=== PATIENT | male | born 1965 | race Caucasian/White ===

== ENCOUNTER 2017-11-14 13:26 | Inpatient (IN) | payer MEDICARE, OTHER ==
[~2017-11-14] VITALS: Ht 175.3 cm; Wt 100.8 kg
[2017-11-14] VITALS (11 sets, daily range): BP systolic 81–104; BP diastolic 55–73
[~2017-11-14 13:26] MED LIST: FOLI1TAB16 PO; HYDR-3973 PO; MELO15TA13 PO; NORepinephrine bitartrate 8 MG in NS 250 ML BAG (32 mcg/ml) IV ONE; calcium chloride 100 MG/1 ML inj IV ONE
[2017-11-14] MEDS ORDERED: octreotide inj. 1,250 MCG in normal saline 250ml IV soln 250 ML IV ONE (15:15)
[2017-11-14] MEDS ORDERED: pantoprazole IV 80 MG in normal saline 100ml IV soln 100 ML IV ONE (15:15)
[2017-11-14] MEDS ORDERED: normal saline 1000ML IV soln IVB ONE (15:15)
[2017-11-14 15:28] LABS: BASOPHILS % (AUTO) 0.2 % (0-1); EOSINOPHILS % (AUTO) 0.2 % (0-6); HEMATOCRIT 39.1 % (42.0-52.0); HEMOGLOBIN 12.9 g/dl (14.0-17.9); LYMPHOCYTES % (AUTO) 9.4 % (21-51); MEAN CORPUSCULAR HEMOGLOBIN 36.6 PG (27.0-31.0); MEAN CORPUSCULAR HGB CONC 32.9 % (33.0-36.5); MEAN CORPUSCULAR VOLUME 111.2 FL (78-98); MEAN PLATELET VOLUME 11.3 FL (7.4-10.4); MONOCYTES # (AUTO) 1.3 X10'3 (0-0.9); MONOCYTES % (AUTO) 12.2 % (2-12); NEUTROPHILS # (AUTO) 8.5 X10'3 (1.8-7.7); PLATELET COUNT 98 X10'3 (140-440); RED BLOOD COUNT 3.52 X10'6 (4.70-6.10); RED CELL DISTRIBUTION WIDTH 20.5 % (11.5-14.5); WHITE BLOOD COUNT 10.9 X10'3 (4.5-11.0)
[2017-11-14] MEDS ORDERED: ondansetron/PF 4mg/2ml inj IV PRN (15:30)
[2017-11-14] MEDS ORDERED: potassium Cl 40MEQ/NS 500ml 500 ML IV PRN (15:30)
[2017-11-14] MEDS ORDERED: magnesium 4gm in 100ml NS 100 ML IV PRN (15:30)
[2017-11-14] MEDS ORDERED: haloperidol lactate 5mg/ml inj IM PRN (15:30)
[2017-11-14] MEDS ORDERED: magnesium Cl slow-release 64mg tablet PO PRN (15:30)
[2017-11-14] MEDS ORDERED: potassium Cl 20 mEq SR tablet PO PRN ×2 (15:30)
[2017-11-14] MEDS ORDERED: haloperidol 5mg tablet PO PRN (15:30)
[2017-11-14] MEDS ORDERED: LORazepam 2 mg/ml vial IV PRN (15:30)
[2017-11-14] MEDS ORDERED: sodium phosphate inj. 15 MMOL in dextrose 5%-water 150 ML IV PRN (15:30)
[2017-11-14] MEDS ORDERED: acetaminophen 325mg tablet PO PRN (15:30)
[2017-11-14] MEDS ORDERED: dextrose 50%-water 50ml dispensing syringe IV PRN (15:30)
[2017-11-14] MEDS ORDERED: ipratropium/albuterol 3ml nebule NEB PRN (15:30)
[2017-11-14] MEDS ORDERED: magnesium 2GM in 50ml NS 50 ML IV PRN (15:30)
[2017-11-14] MEDS ORDERED: sodium bicarbonate (8.4%) inj. 50 MEQ in dextrose 5%-water 1,000 ML IV ONE (15:30)
[2017-11-14] MEDS ORDERED: Neutra Phos packet PO PRN (15:30)
[2017-11-14] MEDS ORDERED: sodium phosphate inj. 30 MMOL in dextrose 5%-water 250 ML IV PRN (15:30)
[2017-11-14 15:31] LABS: ABG BASE EXCESS -23.9 mmol/L (-2.0-3.0); ABG HCO3 8.1 mmol/L (22.0-26.0); ABG PCO2 (T) 41.2 mmHg (35.0-48.0); ABG PO2 (T) 240.1 mmHg (83-108); ALLEN'S TEST Positive; FCOHb 1.1 % (0.5-1.5); FMetHb 0.3 % (0.3-1.12); FO2Hb 97.6 % (94-100); MINUTE VOLUME 8 L/min; PEEP 5 cm H2O; RESPIRATORY RATE 14 b/min; RESPIRATORY RATE (OBSERVED) 14 b/min; TIDAL VOLUME 500 mL; TOTAL HEMOGLOBIN 11.4 G/dl (14.0-18.0)
[2017-11-14] MEDS ORDERED: propofol 1000mg/100ml bottle 100 ML IV PRN (15:37)
[2017-11-14 15:47] LABS: ALBUMIN 1.7 G/DL (3.4-5.0); ALBUMIN/GLOBULIN RATIO 0.4 (1.1-1.5); BILIRUBIN,TOTAL 28.6 MG/DL (0.1-1.0); BLOOD UREA NITROGEN 15 MG/DL (7-18); CALCIUM 7.7 MG/DL (8.5-10.1); POTASSIUM 5.4 MMOL/L (3.5-5.1); TOTAL PROTEIN 5.7 G/DL (6.4-8.2)
[2017-11-14] MEDS ORDERED: LIDOcaine Viscous 15ml cup PO ONE (15:55)
[2017-11-14] MEDS ORDERED: fentaNYL/PF 50MCG/1 ML 2ML syringe IV PRN (15:55)
[2017-11-14] MEDS ORDERED: normal saline 1000ml 1,000 ML IV SCH (15:55)
[2017-11-14] MEDS ORDERED: MIDAZolam 1mg/ml 10ml vial IV PRN (15:55)
[2017-11-14] MEDS ORDERED: simethicone 40mg/0.6ml oral drops 30ml MC ONE (15:55)
[2017-11-14 16:00] LABS: TOTAL CELLS COUNTED 100
[2017-11-14 16:01] LABS: ANISOCYTOSIS 2+; PLATELET ESTIMATE DECREASED; ROULEAUX 1+; SMUDGE CELLS FEW; TARGET CELLS 1+
[2017-11-14 16:02] LABS: POIKILOCYTOSIS 1+; TOXIC GRANULATION 1+
[2017-11-14] MEDS ORDERED: fentaNYL/PF 50MCG/1 ML 2ML syringe ONE (16:02)
[2017-11-14] MEDS ORDERED: MIDAZolam 1mg/ml 10ml vial ONE (16:02)
[2017-11-14] MEDS ORDERED: LIDOcaine Viscous 15ml cup ONE (16:03)
[2017-11-14] MEDS: pantoprazole 40MG/NS 100ML BAG 100 ML IV SCH ×4 (16:12→20:42)
[2017-11-14 16:19] LABS: ALANINE AMINOTRANSFERASE 271 U/L (12-78); ALKALINE PHOSPHATASE 379 IU/L (46-116); ASPARTATE AMINO TRANSFERASE 518 U/L (10-37); BUN/CREATININE RATIO 6.3 (5.4-32.0); CREATININE 2.37 MG/DL (0.60-1.10); GLUCOSE 106 MG/DL (70-104); SODIUM 135 MMOL/L (135-145); TROPONIN I 0.05 NG/ML (0.0-0.05); eGFR 29 ML/MIN
[2017-11-14 16:20] LABS: ETHANOL < 0.010 GM/DL (0.0-0.010)
[2017-11-14] MEDS ORDERED: levoFLOXACIN-Levaquin 500mg/D5 100 ML IV ONE (16:20)
[2017-11-14 16:21] LABS: ANION GAP 41 (8-16); CHLORIDE 84 MMOL/L (99-107)
[2017-11-14 16:22] LABS: AMYLASE 48 U/L (25-115); LDL CHOLESTEROL 54 MG/DL (50-100); LIPASE 63 U/L (73-393)
[2017-11-14] MEDS ORDERED: desmopressin inj. 24 MCG in normal saline 100ml IV soln 94 ML IV ONE (17:40)
[2017-11-14] MEDS: vasopressin inj. 60 UNIT in normal saline 100ml IV soln 97 ML IV SCH (17:54)
[2017-11-14] MEDS ORDERED: folic acid inj. 2 MG, thiamine inj. 100 MG, MVI, adult No.4 with vit. K 10 ML in dextro... IV ONE ×4 (18:10)
[2017-11-14 18:21] LABS: BASOPHILS # (AUTO) 0.1 X10'3 (0-0.2); BASOPHILS % (AUTO) 0.9 % (0-1); EOSINOPHILS # (AUTO) 0.1 X10'3 (0-0.9); EOSINOPHILS % (AUTO) 0.9 % (0-6); HEMATOCRIT 39.1 % (42.0-52.0); HEMOGLOBIN 13.1 g/dl (14.0-17.9); LYMPHOCYTES # (AUTO) 0.9 X10'3 (1.1-4.8); LYMPHOCYTES % (AUTO) 9.2 % (21-51); MEAN CORPUSCULAR HEMOGLOBIN 34.8 PG (27.0-31.0); MEAN CORPUSCULAR HGB CONC 33.5 % (33.0-36.5); MEAN PLATELET VOLUME 11.5 FL (7.4-10.4); MONOCYTES % (AUTO) 9.8 % (2-12); NEUTROPHILS # (AUTO) 7.9 X10'3 (1.8-7.7); NEUTROPHILS % (AUTO) 79.2 % (42-75); PLATELET COUNT 75 X10'3 (140-440); RED BLOOD COUNT 3.76 X10'6 (4.70-6.10); RED CELL DISTRIBUTION WIDTH 23.2 % (11.5-14.5)
[2017-11-14 18:31] LABS: ALANINE AMINOTRANSFERASE 245 U/L (12-78); ALBUMIN 1.3 G/DL (3.4-5.0); ALBUMIN/GLOBULIN RATIO 0.4 (1.1-1.5); ALKALINE PHOSPHATASE 318 IU/L (46-116); ANION GAP 26 (8-16); ASPARTATE AMINO TRANSFERASE 609 U/L (10-37); BLOOD UREA NITROGEN 13 MG/DL (7-18); BUN/CREATININE RATIO 5.6 (5.4-32.0); CALCIUM 6.1 MG/DL (8.5-10.1); CHLORIDE 88 MMOL/L (99-107); CREATININE 2.34 MG/DL (0.60-1.10); GLUCOSE 229 MG/DL (70-104); POTASSIUM 4.2 MMOL/L (3.5-5.1); SODIUM 128 MMOL/L (135-145); TOTAL PROTEIN 4.6 G/DL (6.4-8.2); eGFR 30 ML/MIN
[2017-11-14 18:33] LABS: LARGE PLATELETS FEW; PLATELET ESTIMATE DECREASED; TOTAL CARBON DIOXIDE 14.5 MMOL/L (24-32)
[2017-11-14] MEDS: octreotide inj. 1,250 MCG in normal saline 250ml IV soln 243.75 ML IV SCH (18:35)
[2017-11-14] MEDS: sodium bicarbonate (8.4%) inj. 150 MEQ in dextrose 5%-water 1,000 ML IV SCH (18:38)
[2017-11-14 19:56] LABS: OXYGEN SATURATION (MIXED VEN) 71.8 % (60-80); PO2 MIXED VENOUS (TEMP COR) 56.8 mmHg (35-46)
[2017-11-14] MEDS ORDERED: albumin (human) 25% 100 ML IV solution IV ONE (20:00)
[2017-11-14] MEDS: nystatin 15 GM powder TP SCH (20:43)
[2017-11-14] MEDS: FENTANYL-0.9 % NACL/PF 100 ML IV PRN (21:35)
[2017-11-14] MEDS: midazolam 100mg in NS 100ml 100 ML IV PRN (21:43)
[2017-11-14 23:23] LABS: BASOPHILS % (AUTO) 0.4 % (0-1); EOSINOPHILS % (AUTO) 0.1 % (0-6); HEMATOCRIT 36.8 % (42.0-52.0); HEMOGLOBIN 12.4 g/dl (14.0-17.9); LYMPHOCYTES # (AUTO) 0.9 X10'3 (1.1-4.8); LYMPHOCYTES % (AUTO) 10.8 % (21-51); MEAN CORPUSCULAR HGB CONC 33.7 % (33.0-36.5); MEAN CORPUSCULAR VOLUME 103.9 FL (78-98); MEAN PLATELET VOLUME 10.8 FL (7.4-10.4); MONOCYTES # (AUTO) 0.6 X10'3 (0-0.9); MONOCYTES % (AUTO) 7.6 % (2-12); NEUTROPHILS # (AUTO) 6.7 X10'3 (1.8-7.7); NEUTROPHILS % (AUTO) 81.1 % (42-75); PLATELET COUNT 66 X10'3 (140-440); RED BLOOD COUNT 3.54 X10'6 (4.70-6.10); RED CELL DISTRIBUTION WIDTH 24.8 % (11.5-14.5); WHITE BLOOD COUNT 8.2 X10'3 (4.5-11.0)
[2017-11-15] VITALS (24 sets, daily range): BP systolic 55–108; BP diastolic 34–79
[2017-11-15] MEDS: NORepinephrine 8mg/ 250ml NS 250 ML IV SCH ×4 (00:58→19:39)
[2017-11-15 02:06] LABS: ABG BASE EXCESS -15.8 mmol/L (-2.0-3.0); ABG HCO3 11.5 mmol/L (22.0-26.0); ABG OXYGEN SATURATION 87.2 % (95-98); ABG PCO2 (T) 29.7 mmHg (35.0-48.0); ABG PH (T) 7.195 (7.350-7.450); ABG PO2 (T) 59.2 mmHg (83-108); ALLEN'S TEST Positive; FCOHb 1.1 % (0.5-1.5); FMetHb 0.2 % (0.3-1.12); FO2Hb 86.1 % (94-100); MINUTE VOLUME 12 L/min; PATIENT TEMPERATURE 35.4; PEEP 5 cm H2O; RESPIRATORY RATE 14 b/min; RESPIRATORY RATE (OBSERVED) 24 b/min; TIDAL VOLUME 500 mL; TOTAL HEMOGLOBIN 12.9 G/dl (14.0-18.0)
[2017-11-15] MEDS: pantoprazole 40MG/NS 100ML BAG 100 ML IV SCH ×5 (02:07→19:37)
[2017-11-15] MEDS: sodium bicarbonate (8.4%) inj. 150 MEQ in dextrose 5%-water 1,000 ML IV SCH ×4 (02:23→21:42)
[2017-11-15] MEDS ORDERED: glucagon, human recombinant 1mg kit SUBCUT PRN (02:25)
[2017-11-15] MEDS ORDERED: dextrose 50%-water 50ml dispensing syringe IV PRN ×2 (02:25)
[2017-11-15] MEDS ORDERED: insulin Lispro (HumaLOG) vial - multi-dose SQ ONE (03:10)
[2017-11-15] MEDS: insulin Lispro (HumaLOG) vial - multi-dose SQ SCH ×4 (03:32→21:22)
[2017-11-15 03:37] LABS: BASOPHILS % (AUTO) 0.6 % (0-1); EOSINOPHILS % (AUTO) 0 % (0-6); HEMATOCRIT 35.4 % (42.0-52.0); HEMOGLOBIN 11.9 g/dl (14.0-17.9); LYMPHOCYTES # (AUTO) 0.6 X10'3 (1.1-4.8); MEAN CORPUSCULAR HGB CONC 33.5 % (33.0-36.5); MEAN CORPUSCULAR VOLUME 104.3 FL (78-98); MEAN PLATELET VOLUME 10.9 FL (7.4-10.4); MONOCYTES # (AUTO) 0.3 X10'3 (0-0.9); MONOCYTES % (AUTO) 5.7 % (2-12); NEUTROPHILS # (AUTO) 4.1 X10'3 (1.8-7.7); NEUTROPHILS % (AUTO) 81.7 % (42-75); PLATELET COUNT 55 X10'3 (140-440); RED BLOOD COUNT 3.39 X10'6 (4.70-6.10); RED CELL DISTRIBUTION WIDTH 24.9 % (11.5-14.5)
[2017-11-15 04:07] LABS: HEMOGLOBIN A1C 5.1 % (4.5-6.2)
[2017-11-15 04:22] LABS: NUCLEATED RED BLOOD CELLS 1 /100WBC (0-0); TOTAL CELLS COUNTED 100
[2017-11-15 04:23] LABS: ANISOCYTOSIS 3+; BURR CELLS FEW; PLATELET ESTIMATE DECREASED; TEAR DROP CELLS FEW; TOXIC GRANULATION 1+; TOXIC VACUOLATION 1+
[2017-11-15 04:24] LABS: ALANINE AMINOTRANSFERASE 235 U/L (12-78); ALBUMIN 1.7 G/DL (3.4-5.0); ALBUMIN/GLOBULIN RATIO 0.7 (1.1-1.5); ALKALINE PHOSPHATASE 258 IU/L (46-116); ANION GAP 25 (8-16); BILIRUBIN,TOTAL 25.7 MG/DL (0.1-1.0); BLOOD UREA NITROGEN 14 MG/DL (7-18); CHLORIDE 86 MMOL/L (99-107); GLUCOSE 287 MG/DL (70-104); MAGNESIUM 1.8 MG/DL (1.5-2.4); PHOSPHORUS 6.6 MG/DL (2.3-4.5); POTASSIUM 4.7 MMOL/L (3.5-5.1); SODIUM 127 MMOL/L (135-145); TOTAL CARBON DIOXIDE 15.6 MMOL/L (24-32); TOTAL PROTEIN 4.3 G/DL (6.4-8.2)
[2017-11-15 04:44] LABS: BUN/CREATININE RATIO 5.6 (5.4-32.0); CREATININE 2.51 MG/DL (0.60-1.10); eGFR 27 ML/MIN
[2017-11-15 04:45] LABS: ASPARTATE AMINO TRANSFERASE 812 U/L (10-37)
[2017-11-15] MEDS ORDERED: calcium chloride 100 MG/1 ML inj IV ONE (05:10)
[2017-11-15 05:21] LABS: ABG BASE EXCESS -12.9 mmol/L (-2.0-3.0); ABG HCO3 11.8 mmol/L (22.0-26.0); ABG OXYGEN SATURATION 92.9 % (95-98); ABG PCO2 (T) 24.6 mmHg (35.0-48.0); ABG PH (T) 7.299 (7.350-7.450); ABG PO2 (T) 73.3 mmHg (83-108); ALLEN'S TEST Positive; FCOHb 0.9 % (0.5-1.5); FMetHb 0.2 % (0.3-1.12); FO2Hb 91.9 % (94-100); MINUTE VOLUME 18 L/min; PATIENT TEMPERATURE 36.9; PEEP 10 cm H2O; RESPIRATORY RATE 14 b/min; RESPIRATORY RATE (OBSERVED) 30 b/min; TIDAL VOLUME 500 mL; TOTAL HEMOGLOBIN 12.1 G/dl (14.0-18.0)
[2017-11-15] MEDS: midazolam 100mg in NS 100ml 100 ML IV PRN ×2 (05:41→17:48)
[2017-11-15 06:29] LABS: PROTHROMBIN TIME 111.6 SECONDS (9.0-12.0)
[2017-11-15 06:36] LABS: INR > 9.0 INR; PARTIAL THROMBOPLASTIN TIME > 153 SECONDS (22-32)
[2017-11-15 07:42] LABS: BASOPHILS # (AUTO) 0.1 X10'3 (0-0.2); BASOPHILS % (AUTO) 1.2 % (0-1); EOSINOPHILS % (AUTO) 0 % (0-6); HEMATOCRIT 32.3 % (42.0-52.0); LYMPHOCYTES # (AUTO) 0.7 X10'3 (1.1-4.8); LYMPHOCYTES % (AUTO) 15.4 % (21-51); MEAN CORPUSCULAR VOLUME 102.8 FL (78-98); MEAN PLATELET VOLUME 10.3 FL (7.4-10.4); MONOCYTES # (AUTO) 0.2 X10'3 (0-0.9); MONOCYTES % (AUTO) 4.3 % (2-12); NEUTROPHILS # (AUTO) 3.5 X10'3 (1.8-7.7); NEUTROPHILS % (AUTO) 79.1 % (42-75); RED BLOOD COUNT 3.14 X10'6 (4.70-6.10); RED CELL DISTRIBUTION WIDTH 24.9 % (11.5-14.5); WHITE BLOOD COUNT 4.4 X10'3 (4.5-11.0)
[2017-11-15 07:49] LABS: PLATELET COUNT 41 X10'3 (140-440)
[2017-11-15] MEDS ORDERED: phytonadione inj. 10 MG in normal saline 100ml IV soln 99 ML IV ONE (07:50)
[2017-11-15] MEDS: piperacillin-tazo 2.25gm/50ml 50 ML IV SCH ×3 (07:54→20:54)
[2017-11-15] MEDS: vancomycin/NS 1 GM ADD-VANTAGE 250 ML IV SCH ×2 (07:58→10:34)
[2017-11-15 08:17] LABS: ANISOCYTOSIS 3+; LARGE PLATELETS FEW; PLATELET ESTIMATE DECREASED; TARGET CELLS FEW; TEAR DROP CELLS FEW; TOTAL CELLS COUNTED 100
[2017-11-15] MEDS: nystatin 15 GM powder TP SCH ×3 (08:39→21:14)
[2017-11-15] MEDS: folic acid inj. 2 MG, thiamine inj. 100 MG, MVI, adult No.4 with vit. K 10 ML in dextro... IV SCH ×4 (15:37)
[2017-11-15] MEDS: FENTANYL-0.9 % NACL/PF 100 ML IV PRN (15:38)
[2017-11-15 16:35] LABS: BASOPHILS % (AUTO) 0.4 % (0-1); EOSINOPHILS % (AUTO) 0.6 % (0-6); HEMATOCRIT 22.9 % (42.0-52.0); HEMOGLOBIN 7.4 g/dl (14.0-17.9); LYMPHOCYTES # (AUTO) 0.6 X10'3 (1.1-4.8); LYMPHOCYTES % (AUTO) 15.1 % (21-51); MEAN CORPUSCULAR HEMOGLOBIN 35.4 PG (27.0-31.0); MEAN CORPUSCULAR HGB CONC 32.2 % (33.0-36.5); MEAN CORPUSCULAR VOLUME 109.8 FL (78-98); MEAN PLATELET VOLUME 9.9 FL (7.4-10.4); MONOCYTES # (AUTO) 0.2 X10'3 (0-0.9); MONOCYTES % (AUTO) 4.4 % (2-12); NEUTROPHILS # (AUTO) 3.1 X10'3 (1.8-7.7); NEUTROPHILS % (AUTO) 79.5 % (42-75); RED BLOOD COUNT 2.09 X10'6 (4.70-6.10); RED CELL DISTRIBUTION WIDTH 26.8 % (11.5-14.5); WHITE BLOOD COUNT 3.9 X10'3 (4.5-11.0)
[2017-11-15 16:42] LABS: PLATELET COUNT 17 X10'3 (140-440)
[2017-11-15 17:51] LABS: ALANINE AMINOTRANSFERASE 224 U/L (12-78); ALBUMIN 1.7 G/DL (3.4-5.0); ALBUMIN/GLOBULIN RATIO 0.8 (1.1-1.5); ALKALINE PHOSPHATASE 228 IU/L (46-116); ANION GAP 15 (8-16); ASPARTATE AMINO TRANSFERASE 718 U/L (10-37); BILIRUBIN,TOTAL 26.4 MG/DL (0.1-1.0); BLOOD UREA NITROGEN 14 MG/DL (7-18); BUN/CREATININE RATIO 4.5 (5.4-32.0); CALCIUM 6.4 MG/DL (8.5-10.1); CHLORIDE 88 MMOL/L (99-107); CREATININE 3.11 MG/DL (0.60-1.10); GLUCOSE 205 MG/DL (70-104); POTASSIUM 4.4 MMOL/L (3.5-5.1); SODIUM 131 MMOL/L (135-145); TOTAL CARBON DIOXIDE 27.6 MMOL/L (24-32); TOTAL PROTEIN 3.9 G/DL (6.4-8.2); eGFR 21 ML/MIN
[2017-11-15] MEDS: octreotide inj. 1,250 MCG in normal saline 250ml IV soln 243.75 ML IV SCH (19:38)
[2017-11-15] MEDS: mineral oil/petrolatum ophthal oint EACHEYE SCH (20:54)
[2017-11-15] MEDS: Insulin Detemir pen SQ SCH (21:20)
[2017-11-15 22:44] LABS: BASOPHILS % (AUTO) 0 % (0-1); EOSINOPHILS # (AUTO) 0.1 X10'3 (0-0.9); EOSINOPHILS % (AUTO) 0.9 % (0-6); HEMATOCRIT 32.6 % (42.0-52.0); HEMOGLOBIN 11.1 g/dl (14.0-17.9); LYMPHOCYTES # (AUTO) 0.8 X10'3 (1.1-4.8); LYMPHOCYTES % (AUTO) 14.4 % (21-51); MEAN CORPUSCULAR HEMOGLOBIN 35.1 PG (27.0-31.0); MEAN CORPUSCULAR HGB CONC 34.2 % (33.0-36.5); MEAN CORPUSCULAR VOLUME 102.9 FL (78-98); MEAN PLATELET VOLUME 10.2 FL (7.4-10.4); MONOCYTES # (AUTO) 0.1 X10'3 (0-0.9); MONOCYTES % (AUTO) 2.2 % (2-12); NEUTROPHILS # (AUTO) 4.7 X10'3 (1.8-7.7); NEUTROPHILS % (AUTO) 82.5 % (42-75); RED BLOOD COUNT 3.17 X10'6 (4.70-6.10); RED CELL DISTRIBUTION WIDTH 25.6 % (11.5-14.5); WHITE BLOOD COUNT 5.7 X10'3 (4.5-11.0)
[2017-11-15 22:54] LABS: PLATELET COUNT 21 X10'3 (140-440)
[2017-11-15 23:14] LABS: ALANINE AMINOTRANSFERASE 235 U/L (12-78); ALBUMIN 1.6 G/DL (3.4-5.0); ALBUMIN/GLOBULIN RATIO 0.7 (1.1-1.5); ALKALINE PHOSPHATASE 229 IU/L (46-116); ANION GAP 12 (8-16); BILIRUBIN,TOTAL 26.6 MG/DL (0.1-1.0); BLOOD UREA NITROGEN 14 MG/DL (7-18); BUN/CREATININE RATIO 4.3 (5.4-32.0); CALCIUM 6.3 MG/DL (8.5-10.1); CHLORIDE 88 MMOL/L (99-107); CREATININE 3.26 MG/DL (0.60-1.10); GLUCOSE 189 MG/DL (70-104); SODIUM 129 MMOL/L (135-145); TOTAL CARBON DIOXIDE 28.7 MMOL/L (24-32); eGFR 20 ML/MIN
[2017-11-15 23:33] LABS: ASPARTATE AMINO TRANSFERASE 715 U/L (10-37); POTASSIUM 4.2 MMOL/L (3.5-5.1)
[2017-11-16] VITALS (29 sets, daily range): BP systolic 61–100; BP diastolic 44–69
[2017-11-16] MEDS: pantoprazole 40MG/NS 100ML BAG 100 ML IV SCH ×5 (01:03→21:16)
[2017-11-16] MEDS: sodium bicarbonate (8.4%) inj. 150 MEQ in dextrose 5%-water 1,000 ML IV SCH (01:04)
[2017-11-16] MEDS: NORepinephrine 8mg/ 250ml NS 250 ML IV SCH ×5 (01:04→23:21)
[2017-11-16] MEDS: mineral oil/petrolatum ophthal oint EACHEYE SCH ×4 (02:42→20:20)
[2017-11-16] MEDS: piperacillin-tazo 2.25gm/50ml 50 ML IV SCH ×4 (02:43→20:15)
[2017-11-16 03:16] LABS: BASOPHILS % (AUTO) 0.3 % (0-1); EOSINOPHILS % (AUTO) 0.5 % (0-6); HEMATOCRIT 33.1 % (42.0-52.0); HEMOGLOBIN 11.3 g/dl (14.0-17.9); LYMPHOCYTES # (AUTO) 0.8 X10'3 (1.1-4.8); LYMPHOCYTES % (AUTO) 12.4 % (21-51); MEAN CORPUSCULAR HEMOGLOBIN 34.9 PG (27.0-31.0); MEAN CORPUSCULAR HGB CONC 34.2 % (33.0-36.5); MEAN CORPUSCULAR VOLUME 101.8 FL (78-98); MEAN PLATELET VOLUME 9.9 FL (7.4-10.4); MONOCYTES # (AUTO) 0.2 X10'3 (0-0.9); MONOCYTES % (AUTO) 3.2 % (2-12); NEUTROPHILS # (AUTO) 5.3 X10'3 (1.8-7.7); NEUTROPHILS % (AUTO) 83.6 % (42-75); RED BLOOD COUNT 3.25 X10'6 (4.70-6.10); RED CELL DISTRIBUTION WIDTH 25.6 % (11.5-14.5); WHITE BLOOD COUNT 6.4 X10'3 (4.5-11.0)
[2017-11-16 03:26] LABS: PLATELET COUNT 24 X10'3 (140-440)
[2017-11-16] MEDS: midazolam 100mg in NS 100ml 100 ML IV PRN ×2 (03:30→14:24)
[2017-11-16 03:38] LABS: PROTHROMBIN TIME 43.8 SECONDS (9.0-12.0)
[2017-11-16 03:47] LABS: ALANINE AMINOTRANSFERASE 218 U/L (12-78); ALBUMIN 1.6 G/DL (3.4-5.0); ANION GAP 10 (8-16); BLOOD UREA NITROGEN 14 MG/DL (7-18); BUN/CREATININE RATIO 4.1 (5.4-32.0); CALCIUM 6.2 MG/DL (8.5-10.1); CHLORIDE 88 MMOL/L (99-107); MAGNESIUM 1.4 MG/DL (1.5-2.4); POTASSIUM 4.4 MMOL/L (3.5-5.1); SODIUM 129 MMOL/L (135-145); TOTAL CARBON DIOXIDE 30.8 MMOL/L (24-32); eGFR 19 ML/MIN
[2017-11-16 03:55] LABS: ABG BASE EXCESS 2.9 mmol/L (-2.0-3.0); ABG HCO3 26.7 mmol/L (22.0-26.0); ABG PCO2 (T) 38.6 mmHg (35.0-48.0); ABG PH (T) 7.458 (7.350-7.450); ABG PO2 (T) 60.3 mmHg (83-108); FO2Hb 89.1 % (94-100); MINUTE VOLUME 11 L/min; PATIENT TEMPERATURE 37.3; PEEP 10 cm H2O; RESPIRATORY RATE 14 b/min; RESPIRATORY RATE (OBSERVED) 22 b/min; TIDAL VOLUME 500 mL; TOTAL HEMOGLOBIN 11.9 G/dl (14.0-18.0)
[2017-11-16 04:27] LABS: INR 4.5 INR
[2017-11-16 04:28] LABS: PARTIAL THROMBOPLASTIN TIME 90 SECONDS (22-32)
[2017-11-16 05:04] LABS: ALBUMIN/GLOBULIN RATIO 0.7 (1.1-1.5); ALKALINE PHOSPHATASE 236 IU/L (46-116)
[2017-11-16 05:05] LABS: ASPARTATE AMINO TRANSFERASE 665 U/L (10-37); GLUCOSE 137 MG/DL (70-104); PHOSPHORUS 4.6 MG/DL (2.3-4.5)
[2017-11-16 06:26] LABS: TOTAL CELLS COUNTED 100
[2017-11-16 06:27] LABS: ANISOCYTOSIS 3+; PLATELET ESTIMATE DECREASED; TARGET CELLS FEW; TEAR DROP CELLS FEW
[2017-11-16] MEDS: LACTOBACILLUS RHAMNOSUS GG 15 billion unit sprinkle caps PO SCH (07:30)
[2017-11-16] MEDS: nystatin 15 GM powder TP SCH ×3 (08:59→21:16)
[2017-11-16] MEDS: insulin Lispro (HumaLOG) vial - multi-dose SQ SCH ×3 (09:13→20:56)
[2017-11-16 10:25] LABS: ALANINE AMINOTRANSFERASE 185 U/L (12-78); ALBUMIN 1.3 G/DL (3.4-5.0); ALBUMIN/GLOBULIN RATIO 0.5 (1.1-1.5); ALKALINE PHOSPHATASE 200 IU/L (46-116); ANION GAP 20 (8-16); ASPARTATE AMINO TRANSFERASE 499 U/L (10-37); BILIRUBIN,TOTAL 21.8 MG/DL (0.1-1.0); BLOOD UREA NITROGEN 14 MG/DL (7-18); BUN/CREATININE RATIO 4.1 (5.4-32.0); CHLORIDE 82 MMOL/L (99-107); CREATININE 3.43 MG/DL (0.60-1.10); GLUCOSE 257 MG/DL (70-104); POTASSIUM 4.1 MMOL/L (3.5-5.1); SODIUM 130 MMOL/L (135-145); TOTAL CARBON DIOXIDE 28.1 MMOL/L (24-32); TOTAL PROTEIN 3.9 G/DL (6.4-8.2); eGFR 19 ML/MIN
[2017-11-16 10:28] LABS: CALCIUM 5.3 MG/DL (8.5-10.1)
[2017-11-16] MEDS: FENTANYL-0.9 % NACL/PF 100 ML IV PRN (12:58)
[2017-11-16] MEDS ORDERED: LORazepam 2 mg/ml vial IV PRN ×2 (13:35→15:30)
[2017-11-16] MEDS ORDERED: morphine 10mg/0.5ml (conc. morphine) oral syringe PO PRN (13:35)
[2017-11-16] MEDS: folic acid inj. 2 MG, thiamine inj. 100 MG, MVI, adult No.4 with vit. K 10 ML in dextro... IV SCH ×4 (14:05)
[2017-11-16] MEDS: vasopressin inj. 60 UNIT in normal saline 100ml IV soln 97 ML IV SCH (14:23)
[2017-11-16] MEDS ORDERED: LORazepam 1 MG tablet PO PRN (15:30)
[2017-11-16] MEDS ORDERED: polyethylene glycol 3350 17gm powd pack PO PRN (15:30)
[2017-11-16] MEDS ORDERED: bisacodyl 10mg suppository rectal RC PRN (15:30)
[2017-11-16 19:21] LABS: ALANINE AMINOTRANSFERASE 194 U/L (12-78); ALBUMIN 1.3 G/DL (3.4-5.0); ALBUMIN/GLOBULIN RATIO 0.5 (1.1-1.5); ALKALINE PHOSPHATASE 214 IU/L (46-116); ANION GAP 12 (8-16); ASPARTATE AMINO TRANSFERASE 486 U/L (10-37); BILIRUBIN,TOTAL 22.8 MG/DL (0.1-1.0); BLOOD UREA NITROGEN 16 MG/DL (7-18); BUN/CREATININE RATIO 4.2 (5.4-32.0); CHLORIDE 89 MMOL/L (99-107); CREATININE 3.81 MG/DL (0.60-1.10); GLUCOSE 91 MG/DL (70-104); POTASSIUM 4.6 MMOL/L (3.5-5.1); SODIUM 128 MMOL/L (135-145); TOTAL CARBON DIOXIDE 26.8 MMOL/L (24-32); TOTAL PROTEIN 3.7 G/DL (6.4-8.2); eGFR 17 ML/MIN
[2017-11-16 19:39] LABS: CALCIUM 5.7 MG/DL (8.5-10.1)
[2017-11-16] MEDS: octreotide inj. 1,250 MCG in normal saline 250ml IV soln 243.75 ML IV SCH (20:15)
[2017-11-16] MEDS: Insulin Detemir pen SQ SCH (20:58)
[2017-11-17] VITALS (17 sets, daily range): BP systolic 32–97; BP diastolic 23–62
[2017-11-17 00:34] LABS: ALANINE AMINOTRANSFERASE 193 U/L (12-78); ALBUMIN 1.3 G/DL (3.4-5.0); ALBUMIN/GLOBULIN RATIO 0.5 (1.1-1.5); ALKALINE PHOSPHATASE 211 IU/L (46-116); ANION GAP 14 (8-16); ASPARTATE AMINO TRANSFERASE 476 U/L (10-37); BILIRUBIN,TOTAL 22.5 MG/DL (0.1-1.0); BLOOD UREA NITROGEN 17 MG/DL (7-18); BUN/CREATININE RATIO 4.2 (5.4-32.0); CHLORIDE 88 MMOL/L (99-107); CREATININE 4.02 MG/DL (0.60-1.10); GLUCOSE 61 MG/DL (70-104); POTASSIUM 4.8 MMOL/L (3.5-5.1); SODIUM 128 MMOL/L (135-145); TOTAL CARBON DIOXIDE 25.8 MMOL/L (24-32); TOTAL PROTEIN 3.9 G/DL (6.4-8.2); eGFR 16 ML/MIN
[2017-11-17] MEDS: midazolam 100mg in NS 100ml 100 ML IV PRN ×2 (00:41→10:50)
[2017-11-17] MEDS: pantoprazole 40MG/NS 100ML BAG 100 ML IV SCH ×4 (02:51→13:12)
[2017-11-17] MEDS: piperacillin-tazo 2.25gm/50ml 50 ML IV SCH ×3 (02:51→14:00)
[2017-11-17] MEDS: mineral oil/petrolatum ophthal oint EACHEYE SCH ×3 (02:51→14:00)
[2017-11-17] MEDS: NORepinephrine 8mg/ 250ml NS 250 ML IV SCH ×2 (04:38→09:09)
[2017-11-17 05:20] LABS: BASOPHILS % (AUTO) 0 % (0-1); EOSINOPHILS % (AUTO) 0.1 % (0-6); HEMATOCRIT 33.5 % (42.0-52.0); HEMOGLOBIN 11.4 g/dl (14.0-17.9); LYMPHOCYTES # (AUTO) 0.6 X10'3 (1.1-4.8); MEAN CORPUSCULAR HEMOGLOBIN 35.3 PG (27.0-31.0); MEAN PLATELET VOLUME 9.7 FL (7.4-10.4); MONOCYTES # (AUTO) 0.7 X10'3 (0-0.9); MONOCYTES % (AUTO) 7.4 % (2-12); NEUTROPHILS # (AUTO) 8.7 X10'3 (1.8-7.7); NEUTROPHILS % (AUTO) 86.5 % (42-75); RED BLOOD COUNT 3.23 X10'6 (4.70-6.10); RED CELL DISTRIBUTION WIDTH 25.2 % (11.5-14.5); WHITE BLOOD COUNT 10.1 X10'3 (4.5-11.0)
[2017-11-17 05:28] LABS: PLATELET COUNT 23 X10'3 (140-440)
[2017-11-17 05:41] LABS: ALANINE AMINOTRANSFERASE 176 U/L (12-78); ALBUMIN 1.3 G/DL (3.4-5.0); ALBUMIN/GLOBULIN RATIO 0.5 (1.1-1.5); ALKALINE PHOSPHATASE 211 IU/L (46-116); ANION GAP 14 (8-16); ASPARTATE AMINO TRANSFERASE 401 U/L (10-37); BILIRUBIN,TOTAL 22.1 MG/DL (0.1-1.0); BLOOD UREA NITROGEN 18 MG/DL (7-18); BUN/CREATININE RATIO 4.2 (5.4-32.0); CHLORIDE 88 MMOL/L (99-107); CREATININE 4.32 MG/DL (0.60-1.10); GLUCOSE 91 MG/DL (70-104); MAGNESIUM 2.1 MG/DL (1.5-2.4); PHOSPHORUS 5.2 MG/DL (2.3-4.5); SODIUM 127 MMOL/L (135-145); TOTAL CARBON DIOXIDE 25.3 MMOL/L (24-32); TOTAL PROTEIN 3.8 G/DL (6.4-8.2); eGFR 15 ML/MIN
[2017-11-17 05:47] LABS: INR 3.5 INR; PROTHROMBIN TIME 34.2 SECONDS (9.0-12.0)
[2017-11-17 06:21] LABS: CALCIUM 5.8 MG/DL (8.5-10.1)
[2017-11-17 06:22] LABS: PARTIAL THROMBOPLASTIN TIME 88 SECONDS (22-32)
[2017-11-17] MEDS: LACTOBACILLUS RHAMNOSUS GG 15 billion unit sprinkle caps PO SCH (07:30)
[2017-11-17] MEDS: folic acid inj. 2 MG, thiamine inj. 100 MG, MVI, adult No.4 with vit. K 10 ML in dextro... IV SCH ×4 (08:00)
[2017-11-17] MEDS: nystatin 15 GM powder TP SCH ×2 (08:00→13:00)
[2017-11-17] MEDS: FENTANYL-0.9 % NACL/PF 100 ML IV PRN (10:50)
[2017-11-18] MEDS ORDERED: LORazepam 2 mg/ml vial IV PRN (15:30)
[2017-11-18] MEDS ORDERED: LORazepam 1 MG tablet PO PRN (15:30)
[2017-11-19] MEDS ORDERED: VANCOMYCIN LEVEL IV NR (09:30)
== END 2017-11-17 22:33 | disposition expired | DRG 871 ==
LOC: ER 13:27 → ED HOLD 15:37 → CICU 2S 17:32
PROVIDERS: ADMIT Internal Medicine Critical Care Medicine; ATTEND Internal Medicine Critical Care Medicine
PROC: 5A1945Z Respiratory Ventilation, 24-96 Consecutive Hours (ICD-10-PCS; 2017-11-14)
PROC: 30233N1 Transfusion of Nonautologous Red Blood Cells into Peripheral Vein, Percutaneous Approach (ICD-10-PCS; 2017-11-14)
PROC: 0BH17EZ Insertion of Endotracheal Airway into Trachea, Via Natural or Artificial Opening (ICD-10-PCS; 2017-11-14)
PROC: 06HM33Z Insertion of Infusion Device into Right Femoral Vein, Percutaneous Approach (ICD-10-PCS; 2017-11-14)
PROC: B54BZZA Ultrasonography of Right Lower Extremity Veins, Guidance (ICD-10-PCS; 2017-11-14)
PROC: 0DJ08ZZ Inspection of Upper Intestinal Tract, Via Natural or Artificial Opening Endoscopic (ICD-10-PCS; 2017-11-14)
PROC: 30233L1 Transfusion of Nonautologous Fresh Plasma into Peripheral Vein, Percutaneous Approach (ICD-10-PCS; principal; 2017-11-15)
PROC: 30233K1 Transfusion of Nonautologous Frozen Plasma into Peripheral Vein, Percutaneous Approach (ICD-10-PCS; 2017-11-15)
DX: A41.9 Sepsis, unspecified organism (principal); J96.01 Acute respiratory failure with hypoxia; R57.8 Other shock; K26.4 Chronic or unspecified duodenal ulcer with hemorrhage; K70.41 Alcoholic hepatic failure with coma; K29.71 Gastritis, unspecified, with bleeding; N17.9 Acute kidney failure, unspecified; E87.5 Hyperkalemia; T68.XXXA Hypothermia, initial encounter; K20.9 Esophagitis, unspecified; K70.10 Alcoholic hepatitis without ascites; K70.30 Alcoholic cirrhosis of liver without ascites; R55 Syncope and collapse; G89.29 Other chronic pain; F10.20 Alcohol dependence, uncomplicated; Z51.5 Encounter for palliative care; Z79.899 Other long term (current) drug therapy
CPT/HCPCS: 36415; 36556; 36600; 71045; 80053; 80320; 80329; 82140; 82150; 82330; 82803; 82810; 82948; 83036; 83605; 83690; 83721; 83735; 84100; 84145; 84443; 84484; 85018; 85025; 85610; 85730; 86885; 86900; 86901; 86920; 87040; 87070; 93005; 94002; 94003; 94640; 94760; 99291; A6209; A6213; A6449; A7015; C1758; C9113; J1956; J2250; J2354; J2543; J2597; J3010; J3370; J3411; J3430; J3475; J3490; J7030; J7060; P9016; P9047; P9059